=== PATIENT | female | born 1965 | race Caucasian/White ===

== ENCOUNTER 2021-09-17 11:53 | Inpatient (IN) | payer MEDICARE, MEDICAID ==
[~2021-09-17 11:53] MED LIST: Iopamidol 370 76% 100 ML VIAL ONE
[2021-09-17 12:42] LABS: #Basophils 0.1 10x3/uL (0.0-0.2); #Eosinphils 0.1 10x3/uL (0.0-0.5); #Monocytes 0.7 10x3/uL (0.0-1.1); #Neutrophils 5.4 10x3/uL (1.5-8.4); %Basophils 1.2 % (0.0-2.0); %Eosinophils 1.3 % (0.0-6.0); %Lymphocytes 29.2 % (18.0-47.0); %Monocytes 7.4 % (0.0-10.0); %Neutrophils 60.6 % (40.0-75.0); Hemoglobin 13.8 g/dL (12.0-15.5); Mean Corpuscular HGB CONC 31.6 g/dL (32.0-36.0); Mean Corpuscular Hemoglobin 27.2 pg (27.0-33.0); Mean Corpuscular Volume 86.2 fl (81.6-98.3); Mean Platelet Volume 10.8 fl (7.4-10.4); Platelet Count 374 10x3/uL (150-450); RBC Distribution Width 13.9 % (11.5-14.5); Red Blood Cell (RBC) Count 5.07 10x6/uL (3.90-5.03); White Blood Cell (WBC) Count 8.9 10x3/uL (3.5-10.5)
[2021-09-17] MEDS ORDERED: Aspirin Chewable 81 MG TAB ONE (12:59)
[2021-09-17] MEDS ORDERED: Morphine 4 MG/ML VIAL ONE (13:04)
[2021-09-17] MEDS ORDERED: Ondansetron PF 4 MG/2 ML Vial ONE (13:04)
[2021-09-17 13:13] LABS: ALT (SGPT) 38 U/L (8-55); AST (SGOT) 37 U/L (5-34); Albumin 4.3 g/dL (3.5-5.0); Alkaline Phosphatase 159 U/L (40-110); Anion Gap 19 mmol/L (10-20); BUN (Urea Nitrogen) 5 mg/dL (9.8-20.1); Bilirubin, Total 0.3 mg/dL (0.2-1.2); Calc. Creatinine Clearance 0 mL/min (70-130); Calcium 9.4 mg/dL (7.8-10.44); Carbon Dioxide 21 mmol/L (22-29); Chloride 104 mmol/L (98-107); Globulin 2.4 g/dL (2.4-3.5); Glucose 232 mg/dL (70-105); Protein, Total 6.7 g/dL (6.0-8.3); Sodium 140 mmol/L (136-145)
[2021-09-17 13:37] LABS: Bilirubin Neg (Negative); Blood, Urine 10 (Negative); Clarity Cloudy (Clear); Glucose, Urine (Dipstick) 100 mg/dL (Negative); Ketone, Urine Negative (Negative); Leukocyte 25 (Negative); Nitrite Positive (Negative); Protein, Urine (Dipstick) 30 mg/dl (Neg-Trace); Urobilinogen Normal mg/dL (Less than 2)
[2021-09-17 14:27] LABS: RBC/HPF 0-3 HPF (0-3)
[2021-09-17 14:28] LABS: Bacteria/HPF 4+ HPF (None Seen)
[2021-09-17] MEDS ORDERED: Nitroglycerin 2% Ointment 1 INCH/1 GM Packet ONE ×2 (16:51→16:52)
[2021-09-17] MEDS ORDERED: cefTRIAXone\\ROCEPHIN 1 GM VIAL ONE (16:54)
[2021-09-17] MEDS ORDERED: Ventolin HFA Inhaler 60 PUFF INHALER INH PRN (17:15)
[2021-09-17] MEDS ORDERED: Ondansetron PF 4 MG/2 ML Vial IVP PRN (17:18)
[2021-09-17] MEDS ORDERED: Acetaminophen 325 MG TAB PO PRN (17:18)
[2021-09-17] MEDS ORDERED: Dextrose 5% in Water 1,000 ML IV PRN (17:18)
[2021-09-17] MEDS ORDERED: Dextrose 50% Abboject 50 ML SYRINGE SLOW IVP PRN (17:18)
[2021-09-17 18:05] LABS: Troponin I Less than 0.010 ng/mL (< 0.028)
[2021-09-17 21:11] VITALS: BMI 34.7
[2021-09-17] MEDS ORDERED: Enoxaparin Sodium 40 MG/0.4 ML SYRINGE SC SCH (21:15)
[2021-09-17] MEDS: Montelukast Sodium 10 mg Tablet PO SCH (21:42)
[2021-09-17] MEDS: Doxepin HCl 25 MG CAP PO SCH (21:42)
[2021-09-17] MEDS: Gabapentin 300 MG CAP PO SCH (21:42)
[2021-09-17] MEDS: Famotidine 20 MG TAB PO SCH (21:42)
[2021-09-17] MEDS: Atorvastatin Calcium 40 MG TAB PO SCH (21:43)
[2021-09-17] MEDS: metFORMIN 500 MG TAB PO SCH (21:43)
[2021-09-17] MEDS: Icosapent Ethyl 1 GM CAPSULE PO SCH (21:48)
[2021-09-17 22:27] LABS: Hemoglobin A1c 8.6 % (4.0-6.0)
[2021-09-17] MEDS: Nicotine 21 MG PATCH TD SCH (22:49)
[2021-09-18 00:32] LABS: Amphetamine Not Detected (NotDetected); Barbiturates Screen Not Detected (NotDetected); Benzodiazepine Screen Not Detected (NotDetected); Cocaine Metabolite Screen Not Detected (NotDetected); Methadone Not Detected (NotDetected); Methamphetamine Not Detected (NotDetected); Opiate Screen Not Detected (NotDetected); Oxycodone Screen Not Detected (NotDetected); Phencyclidine (PCP) Not Detected (NotDetected); THC/Cannabinoid Screen Not Detected (NotDetected); Tricyclic Screen Detected (NotDetected)
[2021-09-18 03:56] LABS: #Basophils 0.1 10x3/uL (0.0-0.2); #Eosinphils 0.2 10x3/uL (0.0-0.5); #Monocytes 0.9 10x3/uL (0.0-1.1); #Neutrophils 6.3 10x3/uL (1.5-8.4); %Lymphocytes 31.6 % (18.0-47.0); %Monocytes 7.8 % (0.0-10.0); %Neutrophils 57.3 % (40.0-75.0); Mean Corpuscular HGB CONC 31.7 g/dL (32.0-36.0); Mean Corpuscular Hemoglobin 27.3 pg (27.0-33.0); Mean Corpuscular Volume 85.9 fl (81.6-98.3); Mean Platelet Volume 11.1 fl (7.4-10.4); Platelet Count 320 10x3/uL (150-450); RBC Distribution Width 13.8 % (11.5-14.5); White Blood Cell (WBC) Count 10.9 10x3/uL (3.5-10.5)
[2021-09-18 04:17] LABS: ALT (SGPT) 34 U/L (8-55); AST (SGOT) 38 U/L (5-34); Albumin 3.6 g/dL (3.5-5.0); Alkaline Phosphatase 127 U/L (40-110); Anion Gap 15 mmol/L (10-20); BUN (Urea Nitrogen) 8 mg/dL (9.8-20.1); Bilirubin, Total 0.2 mg/dL (0.2-1.2); Calc. Creatinine Clearance 117 mL/min (70-130); Carbon Dioxide 24 mmol/L (22-29); Chloride 102 mmol/L (98-107); Globulin 2.4 g/dL (2.4-3.5); Glucose 169 mg/dL (70-105); Potassium 3.3 mmol/L (3.5-5.1); Sodium 138 mmol/L (136-145)
[2021-09-18] MEDS: HumaLOG 300 UNITS/3 ML VIAL SC PRN ×4 (06:36→20:49)
[2021-09-18] MEDS: Doxepin HCl 25 MG CAP PO SCH ×3 (08:23→20:43)
[2021-09-18] MEDS: Icosapent Ethyl 1 GM CAPSULE PO SCH ×2 (08:24→20:40)
[2021-09-18] MEDS: Montelukast Sodium 10 mg Tablet PO SCH ×2 (08:25→20:43)
[2021-09-18] MEDS: FLUoxetine HCl 20 MG CAP PO SCH (08:25)
[2021-09-18] MEDS: Gabapentin 300 MG CAP PO SCH ×2 (08:26→20:38)
[2021-09-18] MEDS: Propranolol 40 MG TAB PO SCH (08:26)
[2021-09-18] MEDS: Famotidine 20 MG TAB PO SCH ×2 (08:26→20:38)
[2021-09-18] MEDS: Aspirin 81 mg Enteric Coated Tablet PO SCH (08:26)
[2021-09-18] MEDS: Enoxaparin Sodium 40 MG/0.4 ML SYRINGE SC SCH (08:27)
[2021-09-18] MEDS: Nitroglycerin 0.4 MG TAB (25 Tab Bottle) SL PRN ×2 (10:00→10:10)
[2021-09-18] MEDS ORDERED: NIFEdipine XL 30 MG TAB PO SCH (12:00)
[2021-09-18 15:59] LABS: SARS-CoV-2 PCR by NAA Not Detected (NotDetected)
[2021-09-18] MEDS: cefTRIAXone\\ROCEPHIN 1 GM in Sodium Chloride 0.9% 100 ML IVPB SCH (18:09)
[2021-09-18] MEDS: Melatonin 3 MG TAB PO SCH (20:37)
[2021-09-18] MEDS: Mirtazapine 15 MG TAB PO SCH (20:37)
[2021-09-18] MEDS: metFORMIN 500 MG TAB PO SCH (20:38)
[2021-09-18] MEDS: Atorvastatin Calcium 40 MG TAB PO SCH (20:39)
[2021-09-18] MEDS: Nicotine 21 MG PATCH TD SCH (20:44)
[2021-09-19] MEDS: HumaLOG 300 UNITS/3 ML VIAL SC PRN ×3 (05:16→21:24)
[2021-09-19] MEDS ORDERED: NIFEdipine XL 30 MG TAB PO SCH (09:00)
[2021-09-19] MEDS ORDERED: Potassium Chloride 20 MEQ TAB PO SCH (09:15)
[2021-09-19] MEDS: Doxepin HCl 25 MG CAP PO SCH (09:23)
[2021-09-19] MEDS: Montelukast Sodium 10 mg Tablet PO SCH ×2 (09:24→21:13)
[2021-09-19] MEDS: Famotidine 20 MG TAB PO SCH ×2 (09:24→21:08)
[2021-09-19] MEDS: Propranolol 40 MG TAB PO SCH (09:24)
[2021-09-19] MEDS: FLUoxetine HCl 20 MG CAP PO SCH (09:24)
[2021-09-19] MEDS: Gabapentin 300 MG CAP PO SCH ×2 (09:24→21:11)
[2021-09-19] MEDS: Aspirin 81 mg Enteric Coated Tablet PO SCH (09:25)
[2021-09-19] MEDS: Enoxaparin Sodium 40 MG/0.4 ML SYRINGE SC SCH (09:25)
[2021-09-19] MEDS: Icosapent Ethyl 1 GM CAPSULE PO SCH ×2 (09:27→21:09)
[2021-09-19 09:46] LABS: Magnesium 1.7 mg/dL (1.6-2.6)
[2021-09-19 12:36] LABS: Potassium 4.2 mmol/L (3.5-5.1)
[2021-09-19] MEDS ORDERED: Magnesium Sulfate 4 GM in Sodium Chloride 0.9% 250 ML 250 ML IVPB SCH (15:15)
[2021-09-19] MEDS: cefTRIAXone\\ROCEPHIN 1 GM in Sodium Chloride 0.9% 100 ML IVPB SCH (17:35)
[2021-09-19] MEDS: Magnesium 2 GM/50 ML(in water) 2 GM in Premix Bag 1 BAG IVPB SCH ×4 (18:35→21:08)
[2021-09-19] MEDS: Atorvastatin Calcium 40 MG TAB PO SCH (21:08)
[2021-09-19] MEDS: Nicotine 21 MG PATCH TD SCH (21:10)
[2021-09-19] MEDS: Melatonin 3 MG TAB PO SCH (21:10)
[2021-09-19] MEDS: metFORMIN 500 MG TAB PO SCH (21:12)
[2021-09-19] MEDS: Mirtazapine 15 MG TAB PO SCH (21:13)
[2021-09-19] MEDS ORDERED: Doxepin HCl 25 MG CAP PO SCH (21:30)
[2021-09-20] MEDS: HumaLOG 300 UNITS/3 ML VIAL SC PRN ×3 (05:49→16:37)
[2021-09-20] MEDS: Enoxaparin Sodium 40 MG/0.4 ML SYRINGE SC SCH (08:57)
[2021-09-20] MEDS: Famotidine 20 MG TAB PO SCH ×2 (08:58→20:32)
[2021-09-20] MEDS: Doxepin HCl 25 MG CAP PO SCH (08:58)
[2021-09-20] MEDS: Propranolol 40 MG TAB PO SCH (08:58)
[2021-09-20] MEDS: Aspirin 81 mg Enteric Coated Tablet PO SCH (08:58)
[2021-09-20] MEDS: Gabapentin 300 MG CAP PO SCH ×2 (08:58→20:32)
[2021-09-20] MEDS: Montelukast Sodium 10 mg Tablet PO SCH ×2 (08:58→20:31)
[2021-09-20] MEDS: FLUoxetine HCl 20 MG CAP PO SCH (08:58)
[2021-09-20] MEDS: Icosapent Ethyl 1 GM CAPSULE PO SCH ×2 (09:00→20:33)
[2021-09-20 09:38] LABS: Anion Gap 18 mmol/L (10-20); BUN (Urea Nitrogen) 9 mg/dL (9.8-20.1); Calc. Creatinine Clearance 114 mL/min (70-130); Calcium 9.1 mg/dL (7.8-10.44); Carbon Dioxide 26 mmol/L (22-29); Chloride 105 mmol/L (98-107); Glucose 198 mg/dL (70-105); Potassium 4.9 mmol/L (3.5-5.1); Sodium 144 mmol/L (136-145)
[2021-09-20] MEDS: cefTRIAXone\\ROCEPHIN 1 GM in Sodium Chloride 0.9% 100 ML IVPB SCH (16:37)
[2021-09-20] MEDS: Atorvastatin Calcium 40 MG TAB PO SCH (20:30)
[2021-09-20] MEDS: Melatonin 3 MG TAB PO SCH (20:31)
[2021-09-20] MEDS: metFORMIN 500 MG TAB PO SCH (20:31)
[2021-09-20] MEDS: Mirtazapine 15 MG TAB PO SCH (20:31)
[2021-09-20] MEDS: Nicotine 21 MG PATCH TD SCH (20:39)
[2021-09-20] MEDS ORDERED: Doxepin HCl 25 MG CAP PO SCH (21:00)
[2021-09-21] MEDS: HumaLOG 300 UNITS/3 ML VIAL SC PRN (07:04)
[2021-09-21] MEDS: FLUoxetine HCl 20 MG CAP PO SCH (08:55)
[2021-09-21] MEDS: Enoxaparin Sodium 40 MG/0.4 ML SYRINGE SC SCH (08:55)
[2021-09-21] MEDS: Aspirin 81 mg Enteric Coated Tablet PO SCH (08:56)
[2021-09-21] MEDS: Gabapentin 300 MG CAP PO SCH (08:56)
[2021-09-21] MEDS: Famotidine 20 MG TAB PO SCH (08:56)
[2021-09-21] MEDS: Doxepin HCl 25 MG CAP PO SCH (08:56)
[2021-09-21] MEDS: Montelukast Sodium 10 mg Tablet PO SCH (08:56)
[2021-09-21] MEDS: Propranolol 40 MG TAB PO SCH (08:56)
[2021-09-21] MEDS: Icosapent Ethyl 1 GM CAPSULE PO SCH (08:57)
[2021-09-21 12:31] VITALS: BP 118/76; TEMP 97
[2021-09-21] MEDS ORDERED: cefTRIAXone\\ROCEPHIN 1 GM in Sodium Chloride 0.9% 100 ML IVPB SCH (13:30)
[2021-09-24] MEDS ORDERED: METHOTREXATE SODIUM 5 MG PO SCH (09:00)
== END 2021-09-21 17:17 | disposition home or self-care (01) | DRG 313 ==
LOC: CSHERS 11:53 → CSHTELE 20:39 → OBSVTOIN 09-20 13:59
PROVIDERS: ADMIT Internal Medicine; ATTEND Internal Medicine
DX: R07.89 Other chest pain (principal); N39.0 Urinary tract infection, site not specified; I10 Essential (primary) hypertension; E78.5 Hyperlipidemia, unspecified; F17.210 Nicotine dependence, cigarettes, uncomplicated; E66.9 Obesity, unspecified; Z20.822 Contact with and (suspected) exposure to COVID-19; E11.65 Type 2 diabetes mellitus with hyperglycemia; R00.0 Tachycardia, unspecified; B96.20 Unspecified Escherichia coli [E. coli] as the cause of diseases classified elsewhere; E87.6 Hypokalemia; E83.42 Hypomagnesemia; Z88.0 Allergy status to penicillin; Z91.040 Latex allergy status; Z79.82 Long term (current) use of aspirin; Z79.899 Other long term (current) drug therapy; Z85.118 Personal history of other malignant neoplasm of bronchus and lung; Z90.710 Acquired absence of both cervix and uterus; Z90.2 Acquired absence of lung [part of]; Z71.6 Tobacco abuse counseling; Z68.34 Body mass index [BMI] 34.0-34.9, adult
CPT/HCPCS: 36415; 36416; 71045; 71275; 72141; 74176; 80048; 80053; 80306; 81003; 81015; 83036; 83690; 83735; 84132; 84443; 84484; 85025; 85379; 87077; 87086; 87186; 93005; 93306; 96365; 96366; 96367; 96372; 96375; G0378; J0696; J1650; J1815; J2270; J2405; J3475; J3490; Q9967; U0003; U0005

== ENCOUNTER 2021-11-18 17:15 | Emergency (ER) | payer OTHER, MEDICAID ==
[2021-11-18] MEDS ORDERED: valACYclovir 500 MG TAB PO SCH (19:45)
[2021-11-18 19:47] LABS: #Basophils 0.1 10x3/uL (0.0-0.2); #Eosinphils 0.1 10x3/uL (0.0-0.5); #Neutrophils 6.3 10x3/uL (1.5-8.4); %Basophils 0.7 % (0.0-2.0); %Eosinophils 1.3 % (0.0-6.0); %Lymphocytes 30.1 % (18.0-47.0); %Monocytes 9.4 % (0.0-10.0); Hemoglobin 11.3 g/dL (12.0-15.5); Mean Corpuscular HGB CONC 30.2 g/dL (32.0-36.0); Mean Corpuscular Hemoglobin 21.9 pg (27.0-33.0); Mean Corpuscular Volume 72.3 fl (81.6-98.3); Mean Platelet Volume 10.2 fl (7.4-10.4); Platelet Count 434 10x3/uL (150-450); RBC Distribution Width 17.1 % (11.5-14.5); Red Blood Cell (RBC) Count 5.17 10x6/uL (3.90-5.03)
[2021-11-18 20:01] LABS: ALT (SGPT) 29 U/L (8-55); AST (SGOT) 26 U/L (5-34); Albumin 3.9 g/dL (3.5-5.0); Alkaline Phosphatase 176 U/L (40-110); Anion Gap 16 mmol/L (10-20); BUN (Urea Nitrogen) 10 mg/dL (9.8-20.1); Bilirubin, Total 0.2 mg/dL (0.2-1.2); Calc. Creatinine Clearance 0 mL/min (70-130); Calcium 10.4 mg/dL (7.8-10.44); Carbon Dioxide 27 mmol/L (22-29); Chloride 101 mmol/L (98-107); Estimated GFR 93; Globulin 3.1 g/dL (2.4-3.5); Glucose 203 mg/dL (70-105); Potassium 3.6 mmol/L (3.5-5.1); Sodium 140 mmol/L (136-145)
[2021-11-18] MEDS ORDERED: Ketorolac Tromethamine 30 MG/ML VIAL ONE (22:39)
[2021-11-18 23:06] LABS: Troponin I Less than 0.010 ng/mL (< 0.028)
== END 2021-11-18 23:09 | disposition home or self-care (01) ==
LOC: CSHERS 17:15
DX: U07.1 COVID-19 (principal); R07.9 Chest pain, unspecified; E11.9 Type 2 diabetes mellitus without complications; F17.210 Nicotine dependence, cigarettes, uncomplicated; Z86.73 Personal history of transient ischemic attack (TIA), and cerebral infarction without residual deficits; I10 Essential (primary) hypertension; E78.5 Hyperlipidemia, unspecified
CPT/HCPCS: 71045; 71275; 80053; 83880; 84484 ×2; 85025; 85379; 93005; 94640; 94760; 96374; 99285; U0003; U0005; J1885; J7620; Q9967

== ENCOUNTER 2021-12-03 16:01 | Observation (INO) | payer OTHER, MEDICAID ==
[2021-12-03 16:36] LABS: #Basophils 0.1 10x3/uL (0.0-0.2); #Eosinphils 0.2 10x3/uL (0.0-0.5); #Monocytes 0.9 10x3/uL (0.0-1.1); #Neutrophils 7.5 10x3/uL (1.5-8.4); %Eosinophils 1.9 % (0.0-6.0); %Lymphocytes 22.9 % (18.0-47.0); %Monocytes 7.6 % (0.0-10.0); %Neutrophils 65.9 % (40.0-75.0); Hemoglobin 9.9 g/dL (12.0-15.5); Mean Corpuscular HGB CONC 29.3 g/dL (32.0-36.0); Mean Corpuscular Hemoglobin 21.3 pg (27.0-33.0); Mean Corpuscular Volume 72.7 fl (81.6-98.3); Mean Platelet Volume 11.1 fl (7.4-10.4); Platelet Count 497 10x3/uL (150-450); RBC Distribution Width 18.6 % (11.5-14.5); Red Blood Cell (RBC) Count 4.65 10x6/uL (3.90-5.03); White Blood Cell (WBC) Count 11.4 10x3/uL (3.5-10.5)
[2021-12-03 17:03] LABS: ALT (SGPT) 35 U/L (8-55); AST (SGOT) 32 U/L (5-34); Alkaline Phosphatase 166 U/L (40-110); Anion Gap 15 mmol/L (10-20); BUN (Urea Nitrogen) 8 mg/dL (9.8-20.1); Bilirubin, Total 0.3 mg/dL (0.2-1.2); Calc. Creatinine Clearance 0 mL/min (70-130); Calcium 10.3 mg/dL (7.8-10.44); Carbon Dioxide 25 mmol/L (22-29); Chloride 102 mmol/L (98-107); Digoxin Less than 0.15 ng/mL (0.8-2.0); Estimated GFR 91; Globulin 2.7 g/dL (2.4-3.5); Glucose 312 mg/dL (70-105); Potassium 3.9 mmol/L (3.5-5.1); Protein, Total 6.7 g/dL (6.0-8.3); Sodium 138 mmol/L (136-145)
[2021-12-03 17:10] LABS: Anisocytosis SLIGHT = 6-15 cells (100X) (0-5/hpf); Hypochromia SLIGHT = 6-15 cells (100X) (0-5/hpf); Microcytosis SLIGHT = 6-15 cells (100X) (0-5/hpf); Ovalocytes SLIGHT = 2-5 cells (100X) (0-1/hpf); Platelet Morphology Comment Appears Increased
[2021-12-03] MEDS ORDERED: Aspirin Chewable 81 MG TAB ONE (17:14)
[2021-12-03] MEDS ORDERED: Nitroglycerin 0.4 MG TAB 1 EACH ONE (17:15)
[2021-12-03 19:57] LABS: Troponin I Less than 0.010 ng/mL (< 0.028)
[2021-12-03 22:42] LABS: Troponin I Less than 0.010 ng/mL (< 0.028)
[2021-12-03] MEDS ORDERED: Ondansetron PF 4 MG/2 ML Vial IVP PRN (23:11)
[2021-12-03] MEDS ORDERED: Nitroglycerin 0.4 MG TAB (25 Tab Bottle) SL PRN (23:11)
[2021-12-03] MEDS ORDERED: Dextrose 50% Abboject 50 ML SYRINGE SLOW IVP PRN (23:11)
[2021-12-03] MEDS ORDERED: HumaLOG 300 UNITS/3 ML VIAL SC PRN ×2 (23:11)
[2021-12-03] MEDS ORDERED: Dextrose 5% in Water 1,000 ML IV PRN (23:11)
[2021-12-03] MEDS ORDERED: Bisacodyl 10 MG SUPP PR PRN (23:11)
[2021-12-03] MEDS ORDERED: Guaifenesin DM 100-10/5 ML UDCUP PO PRN (23:11)
[2021-12-03] MEDS ORDERED: HYDROcodone/Acetaminophen 10/325 mg Tablet PO PRN (23:11)
[2021-12-03] MEDS ORDERED: Acetaminophen 325 MG TAB PO PRN (23:11)
[2021-12-03] MEDS ORDERED: Sodium Chloride 0.9% 1,000 ML IV SCH (23:15)
[2021-12-03] MEDS ORDERED: Morphine 2 MG/ML VIAL SLOW IVP PRN (23:20)
[2021-12-03] MEDS ORDERED: hydrALAZINE 20 MG/ML VIAL SLOW IVP PRN (23:20)
[2021-12-03] MEDS ORDERED: Aspirin 325 MG TAB PO SCH (23:30)
[2021-12-04] MEDS ORDERED: Nicotine 14 MG PATCH ONE (00:04)
[2021-12-04] MEDS ORDERED: Zolpidem Tartrate 5 MG TAB ONE (00:04)
[2021-12-04] MEDS: Nicotine 21 MG PATCH TD SCH ×2 (00:15→00:22)
[2021-12-04] MEDS: Zolpidem Tartrate 5 MG TAB PO PRN ×2 (00:16→00:21)
[2021-12-04 04:10] VITALS: BMI 34.7
[2021-12-04 04:19] LABS: SARS-CoV-2 NAA Rapid Test Not Detected (NotDetected)
[2021-12-04 05:49] LABS: Anion Gap 15 mmol/L (10-20); BUN (Urea Nitrogen) 8 mg/dL (9.8-20.1); Calc. Creatinine Clearance 122 mL/min (70-130); Calcium 9.9 mg/dL (7.8-10.44); Carbon Dioxide 28 mmol/L (22-29); Chloride 102 mmol/L (98-107); Estimated GFR 101; Glucose 247 mg/dL (70-105); Potassium 3.9 mmol/L (3.5-5.1); Sodium 141 mmol/L (136-145)
[2021-12-04 05:54] LABS: #Basophils 0.1 10x3/uL (0.0-0.2); #Eosinphils 0.3 10x3/uL (0.0-0.5); #Monocytes 1.1 10x3/uL (0.0-1.1); %Basophils 1.2 % (0.0-2.0); %Eosinophils 2.5 % (0.0-6.0); %Lymphocytes 25.9 % (18.0-47.0); %Monocytes 9.5 % (0.0-10.0); %Neutrophils 60.1 % (40.0-75.0); Hemoglobin 9.8 g/dL (12.0-15.5); Mean Corpuscular HGB CONC 29.1 g/dL (32.0-36.0); Mean Corpuscular Hemoglobin 21.2 pg (27.0-33.0); Mean Corpuscular Volume 72.9 fl (81.6-98.3); Mean Platelet Volume 11.2 fl (7.4-10.4); Platelet Count 437 10x3/uL (150-450); RBC Distribution Width 18.6 % (11.5-14.5); Red Blood Cell (RBC) Count 4.62 10x6/uL (3.90-5.03); White Blood Cell (WBC) Count 11.6 10x3/uL (3.5-10.5)
[2021-12-04 06:44] LABS: Bilirubin Neg (Negative); Blood, Urine Negative (Negative); Clarity Clear (Clear); Glucose, Urine (Dipstick) Normal (Negative); Ketone, Urine Negative (Negative); Leukocyte Negative (Negative); Nitrite Positive (Negative); Protein, Urine (Dipstick) Negative (Neg-Trace); Urobilinogen Normal mg/dL (Less than 2)
[2021-12-04 06:59] LABS: Bacteria/HPF 4+ HPF (None Seen); RBC/HPF 0-3 HPF (0-3); Squamous Epithelial 0-3 HPF (0-3); WBC/HPF 0-3 HPF (0-3)
[2021-12-04] MEDS ORDERED: Enoxaparin Sodium 40 MG/0.4 ML SYRINGE SC SCH (09:00)
[2021-12-04] MEDS ORDERED: Clopidogrel Bisulfate 75 MG TAB PO SCH (09:00)
[2021-12-04] MEDS ORDERED: NIFEdipine XL 30 MG TAB PO SCH (09:00)
[2021-12-04] MEDS ORDERED: pyridOXINE 50 MG (B6) TAB PO SCH (09:00)
[2021-12-04] MEDS ORDERED: Montelukast Sodium 10 mg Tablet PO SCH (09:00)
[2021-12-04] MEDS ORDERED: Aspirin Chewable 81 MG TAB PO SCH (09:00)
[2021-12-04] MEDS ORDERED: Nitrofurantoin Macrocrystal 50 MG CAP PO SCH (17:00)
[2021-12-04 20:26] VITALS: BP 155/78; TEMP 97.5
[2021-12-04] MEDS ORDERED: Atorvastatin Calcium 40 MG TAB PO SCH (21:00)
[2021-12-04] MEDS ORDERED: Mirtazapine 15 MG TAB PO SCH (21:00)
[2021-12-04] MEDS ORDERED: metFORMIN 500 MG TAB PO SCH (21:00)
== END 2021-12-04 20:15 | disposition home or self-care (01) ==
LOC: CSHERS 16:01 → CSHERHOLD 19:34 → CSHTELE 12-04 04:03
PROVIDERS: ADMIT Hospitalist; ATTEND Hospitalist
DX: R07.89 Other chest pain (principal); I10 Essential (primary) hypertension; E11.65 Type 2 diabetes mellitus with hyperglycemia; D64.9 Anemia, unspecified; F17.210 Nicotine dependence, cigarettes, uncomplicated; J44.9 Chronic obstructive pulmonary disease, unspecified; E78.5 Hyperlipidemia, unspecified; E66.9 Obesity, unspecified; Z68.34 Body mass index [BMI] 34.0-34.9, adult; Z85.118 Personal history of other malignant neoplasm of bronchus and lung; Z86.73 Personal history of transient ischemic attack (TIA), and cerebral infarction without residual deficits; Z79.82 Long term (current) use of aspirin; Z79.83 Long term (current) use of bisphosphonates; Z79.84 Long term (current) use of oral hypoglycemic drugs; Z79.899 Other long term (current) drug therapy; Z88.0 Allergy status to penicillin; Z91.040 Latex allergy status; Z20.822 Contact with and (suspected) exposure to COVID-19
CPT/HCPCS: 71045; 80048; 80053; 80162; 81001; 82550; 82962; 83690; 84484 ×2; 85025 ×2; 93005; 93306; 94640 ×2; 96372; 99285; G0378 ×3; U0002; 36415; 36416; J1650; J7050; J7620

== ENCOUNTER 2022-01-24 10:09 | Outpatient (CLI) | payer OTHER, MEDICAID ==
[~2022-01-24 10:09] MED LIST changes: +Iopamidol 300 61% 100 ML VIAL FS ONE; -Iopamidol 370 76% 100 ML VIAL ONE
== END 2022-01-24 10:10 | disposition home or self-care (01) ==
LOC: CSHCT 10:09
PROVIDERS: ATTEND Internal Medicine Hematology & Oncology
DX: C34.11 Malignant neoplasm of upper lobe, right bronchus or lung (principal); Z90.2 Acquired absence of lung [part of]
CPT/HCPCS: 71260; Q9967

== ENCOUNTER 2022-02-17 15:20 | Emergency (ER) | payer OTHER ==
[2022-02-17] MEDS ORDERED: HYDROcodone/Acetaminophen 5/325 mg Tablet ONE (17:50)
[2022-02-17] MEDS ORDERED: Lidocaine 1% (PF) 30 ML VIAL ONE (17:50)
[2022-02-17] MEDS ORDERED: Boostrix 0.5 ML (Tdap) VIAL (>/=7 yrs of age) IM ONE (18:00)
[2022-02-17] MEDS ORDERED: HYDROcodone/Acetaminophen 5/325 mg Tablet PO SCH (18:00)
[2022-02-17] MEDS ORDERED: Triple Antibiotic Oint 1 GM Packet ONE (18:09)
== END 2022-02-17 18:08 | disposition home or self-care (01) ==
LOC: CSHERS 15:20
DX: S50.01XA Contusion of right elbow, initial encounter (principal); E11.9 Type 2 diabetes mellitus without complications; Z86.73 Personal history of transient ischemic attack (TIA), and cerebral infarction without residual deficits; G43.909 Migraine, unspecified, not intractable, without status migrainosus; E78.5 Hyperlipidemia, unspecified; I10 Essential (primary) hypertension; F17.210 Nicotine dependence, cigarettes, uncomplicated; Z79.899 Other long term (current) drug therapy; Z79.82 Long term (current) use of aspirin; W01.0XXA Fall on same level from slipping, tripping and stumbling without subsequent striking against object, initial encounter
CPT/HCPCS: 90471; 90715; J2001

== ENCOUNTER 2023-07-06 17:16 | Emergency (ER) | payer OTHER ==
[2023-07-06 19:03] LABS: #Basophils 0.1 10x3/uL (0.0-0.2); #Eosinphils 0.2 10x3/uL (0.0-0.5); #Monocytes 1.1 10x3/uL (0.0-1.1); #Neutrophils 10.4 10x3/uL (1.5-8.4); %Basophils 0.9 % (0.0-2.0); %Eosinophils 1.4 % (0.0-6.0); %Lymphocytes 19.2 % (18.0-47.0); %Monocytes 7.3 % (0.0-10.0); %Neutrophils 69.7 % (40.0-75.0); Hematocrit 34.6 % (34.9-44.5); Hemoglobin 10.4 g/dL (12.0-15.5); Mean Corpuscular HGB CONC 30.1 g/dL (32.0-36.0); Mean Corpuscular Hemoglobin 21.6 pg (27.0-33.0); Mean Corpuscular Volume 71.8 fl (81.6-98.3); Mean Platelet Volume 10.9 fl (7.4-10.4); Platelet Count 372 10x3/uL (150-450); RBC Distribution Width 21.6 % (11.5-14.5); Red Blood Cell (RBC) Count 4.82 10x6/uL (3.90-5.03); White Blood Cell (WBC) Count 14.9 10x3/uL (3.5-10.5)
[2023-07-06 19:29] LABS: ALT (SGPT) 14 U/L (8-55); AST (SGOT) 12 U/L (5-34); Alkaline Phosphatase 139 U/L (40-110); Anion Gap 15 mmol/L (10-20); BUN (Urea Nitrogen) 13 mg/dL (9.8-20.1); Bilirubin, Total 0.2 mg/dL (0.2-1.2); Calc. Creatinine Clearance 0 mL/min (70-130); Calcium 9.4 mg/dL (7.8-10.44); Carbon Dioxide 22 mmol/L (22-29); Chloride 104 mmol/L (98-107); Estimated GFR 85; Globulin 2.9 g/dL (2.4-3.5); Glucose 214 mg/dL (70-105); Lipase 28 U/L (8-78); Potassium 3.7 mmol/L (3.5-5.1); Protein, Total 6.9 g/dL (6.0-8.3); Sodium 137 mmol/L (136-145)
== END 2023-07-06 20:52 | disposition home or self-care (01) ==
LOC: CSHERS 17:16
DX: J18.9 Pneumonia, unspecified organism (principal); M94.0 Chondrocostal junction syndrome [Tietze]; F17.210 Nicotine dependence, cigarettes, uncomplicated; E11.9 Type 2 diabetes mellitus without complications; I10 Essential (primary) hypertension
CPT/HCPCS: 71046; 80053; 83690; 85025; 93005; 93010; 99285

== ENCOUNTER 2023-11-06 14:06 | Inpatient (IN) | payer OTHER ==
[2023-11-07 00:51] VITALS: BMI 35.0
[2023-11-09 12:24] VITALS: TEMP 97.8
[2023-11-09 13:21] VITALS: BP 131/92
== END 2023-11-09 15:20 | disposition home or self-care (01) | DRG 683 ==
LOC: CSHERS 14:06 → CSHTELE 19:59 → OBSVTOIN 11-07 08:35
PROVIDERS: ADMIT Family Medicine; ATTEND Internal Medicine
PROC: 30233J1 Transfusion of Nonautologous Serum Albumin into Peripheral Vein, Percutaneous Approach (ICD-10-PCS; principal; 2023-11-06)
DX: N17.9 Acute kidney failure, unspecified (principal); E87.20 Acidosis, unspecified; E66.9 Obesity, unspecified; R19.7 Diarrhea, unspecified; I10 Essential (primary) hypertension; G43.909 Migraine, unspecified, not intractable, without status migrainosus; E78.5 Hyperlipidemia, unspecified; D50.9 Iron deficiency anemia, unspecified; F31.9 Bipolar disorder, unspecified; F41.8 Other specified anxiety disorders; G47.33 Obstructive sleep apnea (adult) (pediatric); D35.02 Benign neoplasm of left adrenal gland; E11.65 Type 2 diabetes mellitus with hyperglycemia; F17.210 Nicotine dependence, cigarettes, uncomplicated; Z90.2 Acquired absence of lung [part of]; Z90.710 Acquired absence of both cervix and uterus; Z98.890 Other specified postprocedural states; Z88.0 Allergy status to penicillin; Z91.040 Latex allergy status; Z79.4 Long term (current) use of insulin; Z85.118 Personal history of other malignant neoplasm of bronchus and lung; Z68.35 Body mass index [BMI] 35.0-35.9, adult
CPT/HCPCS: 36415; 36416; 51798; 74176; 80048; 80053; 80076; 83690; 83735; 84145; 85025; 85060; 87040; 87149; 87324; 87449; 87505; 93005; 96374; 96375; 96376; G0378; J0744; J1650; J1815; J1885; J2405; J3370; J3475; J7120; P9047

== ENCOUNTER 2024-06-18 18:07 | Emergency (ER) | payer OTHER, MEDICAID ==
[2024-06-18 19:05] LABS: ALT (SGPT) 37 U/L (Less than 34); AST (SGOT) 43 U/L (11-34); Albumin 4.2 g/dL (3.1-4.5); Alkaline Phosphatase 133 U/L (40-110); Anion Gap 18 mmol/L (10-20); BUN (Urea Nitrogen) 7 mg/dL (9.8-20.1); Bilirubin, Total 0.4 mg/dL (0.3-1.2); Calc. Creatinine Clearance 0 mL/min (70-130); Calcium 9.9 mg/dL (7.8-10.44); Carbon Dioxide 24 mmol/L (22-29); Chloride 103 mmol/L (98-107); Estimated GFR 100; Globulin 3.5 g/dL (2.4-3.5); Glucose 162 mg/dL (70-105); Lipase 21 U/L (8-78); Potassium 3.6 mmol/L (3.5-5.1); Protein, Total 7.7 g/dL (6.0-8.3); Sodium 141 mmol/L (136-145)
[2024-06-18 19:07] LABS: Troponin I Less than 0.010 ng/mL (< 0.028)
[2024-06-18 19:16] LABS: Hematocrit 42.2 % (34.9-44.5); Hemoglobin 11.7 g/dL (12.0-15.5); Mean Corpuscular HGB CONC 27.7 g/dL (32.0-36.0); Mean Corpuscular Hemoglobin 17.2 pg (27.0-33.0); Mean Corpuscular Volume 61.9 fL (81.6-98.3); RBC Distribution Width 24.3 % (11.5-14.5); Red Blood Cell (RBC) Count 6.82 10x6/uL (3.90-5.03); White Blood Cell (WBC) Count 12.84 10x3/uL (3.5-10.5)
[2024-06-18 19:17] LABS: #Basophils 0.12 10x3/uL (0.0-0.2); #Eosinophils 0.15 10x3/uL (0.0-0.5); #Monocytes 0.89 10x3/uL (0.0-1.1); #Neutrophils 8.76 10x3/uL (1.5-8.4); %Basophils 0.9 % (0.0-2.0); %Eosinophils 1.2 % (0.0-6.0); %Lymphocytes 22.1 % (18.0-47.0); %Monocytes 6.9 % (0.0-10.0); %Neutrophils 68.3 % (40.0-75.0); Platelet Count 458 10x3/uL (150-450)
[2024-06-18 19:39] LABS: Bilirubin Neg (Negative); Blood, Urine 10 (Negative); Clarity Cloudy (Clear); Glucose, Urine (Dipstick) >=1000 mg/dL (Negative); Ketone, Urine 5 mg/dL (Negative); Leukocyte 100 (Negative); Nitrite Positive (Negative); Protein, Urine (Dipstick) 30 mg/dl (Neg-Trace); Specific Gravity, Urine 1.025 (1.005-1.030); Urobilinogen Normal mg/dL (Less than 2)
[2024-06-18 19:47] LABS: Bacteria/HPF 2+ HPF (None Seen); CAUTI Indications for Culture Alt mental st,lethar; Mucous/LPF Rare LPF (<2+); RBC/HPF 0-3 HPF (0-3); Yeast-Budding Rare HPF (None Seen)
[2024-06-18 19:49] LABS: Urine Culture Reflex No No
[2024-06-18 19:53] LABS: Anisocytosis MODERATE=16-30 cells (100X) (0-5/hpf); Elliptocytes SLIGHT = 2-5 cells (100X) (0-1/hpf); Hypochromia MODERATE=16-30 cells (100X) (0-5/hpf); Large Platelets SLIGHT (None Seen); MDiff Complete? YES; Microcytosis MARKED = >30 cells (100X) (0-5/hpf); Ovalocytes SLIGHT = 2-5 cells (100X) (0-1/hpf); Platelet Adequacy Comment Appears Adequate; Polychromasia SLIGHT = 2-3 cells (100X) (0-2/hpf)
[2024-06-18] MEDS ORDERED: Acetaminophen 500 MG TAB ONE (20:32)
[2024-06-18] MEDS ORDERED: Sulfameth/Trimethoprim DS 800-160mg TAB ONE (20:33)
== END 2024-06-18 22:48 | disposition home or self-care (01) ==
LOC: CSHERS 18:07
DX: J98.8 Other specified respiratory disorders (principal); N39.0 Urinary tract infection, site not specified; E11.9 Type 2 diabetes mellitus without complications; F17.210 Nicotine dependence, cigarettes, uncomplicated; E78.5 Hyperlipidemia, unspecified; Z79.899 Other long term (current) drug therapy; Z79.84 Long term (current) use of oral hypoglycemic drugs
CPT/HCPCS: 71045; 80053; 81001; 83690; 84484; 85025; 87428; 93005

== ENCOUNTER 2025-05-09 09:37 | Outpatient (CLI) | payer OTHER | END 2025-05-09 09:38 | disposition home or self-care (01) | LOC: CSHCT 09:37 | PROVIDERS: ATTEND Internal Medicine Critical Care Medicine | DX: R91.8 Other nonspecific abnormal finding of lung field (principal) | CPT/HCPCS: 71250 ==